=== PATIENT | male | born 1975 | race Caucasian/White ===

== ENCOUNTER → 2021-03-28 08:09 | Outpatient (CLI) | payer OTHER, SELFPAY ==
--- NOTE | ~2021-03-28 | US_ITS ---
US right upper quadrant INDICATION: Elevated liver enzymes. PROCEDURE: Realtime right upper abdominal ultrasound. COMPARISON: No prior studies for comparison. FINDINGS: The pancreas is normal without focal mass or pancreatic ductal dilation. Liver echotexture is increased, consistent with fatty infiltration. There is normal directional flow in the portal ve in. The gallbladder is normal without stones, gallbladder wall thickening or pericholecystic fluid. Comm on bile duct measures 5 mm. No sonographic Campa's sign. IMPRESSION: 1: Hepatic steatosis. Reviewed, dictated and finalized at location A. IMPRESSION: 1: Hepatic steatosis.
== END ==
DX: R74.8 Abnormal levels of other serum enzymes (principal); K76.0 Fatty (change of) liver, not elsewhere classified
CPT/HCPCS: 76705

== ENCOUNTER 2025-01-29 00:28 | Day surgery (SDC) | payer OTHER, SELFPAY ==
[2025-01-21 11:49] VITALS: BMI 39.2
--- OUTSIDE RECORDS SUMMARY | 2025-01-29 00:30 | XMS_ITS | Encounter Summary ---
Author Organization [facility] Address [address] [place] [id number] Care Team Providers Care Regasification Plant Operator Name Role Phone Cammy Young NP Primary Care Provider [phone] Encounter Details Date Type Department Care Team (Late st Contact Info) Description 05/16/2021 oneforty Message Enc [facility] Family Medicine - [place] [address] [facility] [address] [place] [phone] Cammy Young, FIDEL [address] [place] [address] RE: Question Social History Tobacco Use Types Packs/Day Years Used Date Smoking Tobacco: Former Cigarettes 1 10 Smokeless Tobacco: Current Chew Comments:Chewing tobacco x 5 years current Alcohol Use Standard Drinks/Week Comments Not Currently 0 (1 standard drink = 0.6 oz pur e alcohol) Few beers a week PHQ-2 Answer Date Recorded PHQ-2 Score - If the patient scores above 3, please move on to questions 3-9 0 02/27/2021 Sex and Gender Information Value Date Recorded Sex Assigned at Not on file Legal Sex Male 8:02 AM CDT Gender Identity Not on file Sexual Orientation Not on file COVID-19 Exposure Response Date Recorded In the last month, have you been in contact with someone who was confirmed or suspected to have Coronavirus / COVID-19? 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
--- OUTSIDE RECORDS SUMMARY | 2025-01-29 00:30 | XMS_ITS | Clinical Summary ---
Author Organization [facility] Address [facility] [place] [address] Care Team Providers Care Supplier Quality Engineering Manager Name Role Phone Cammy Young NP Primary Care Provider [phone] [phone] Allergies No known active allergies Medications Cholecalciferol 250 MCG (99434 UT) Cap Take 10,000 Units by mouth daily. Active lisinopril-hydro CHLOROthiazide (ZESTORETIC) 20-25 MG tabletIndication s:Hypertension, unspecified type Take 1 tablet by mouth daily. 90 tablet 1 12/28/2024 Active buPROPion XL (WELLBUTRIN XL) 300 MG 24 hr tabletIndication s:Anxiety and depression Take 1 tablet (300 mg total) by mouth daily. 90 tablet 1 12/28/2024 Active Active Problems Problem Noted Date Diagnosed Date Screening for colon cancer 09/21/2024 Assessment & Plan (09/21/2024 2:10 PM TOP TRIMMER): Due. Referral placed. Anxiety and depression 06/21/2024 Overview (09/21/2024): At last visit we increased his Wellbutrin XL to 300mg daily. Pt reports feeling amazing, it was like a night and day change. He reprots feeling better in 2- 3 weeks with higher does. Denies SI/HI. Assessment & Plan (09/21/2024 2:12 PM TOP TRIMMER): Pt is doing great. No changes needed at this time. Is needing a med refill today. BP has been well controlled with use. Assessment & Plan (06/21/2024 8:34 PM CDT): Shared decision making with tx options Pt would like to increase her bupropion from 150mg to 300mg vs something different he would like to try for depression. Encourage stress relieving activities, therapy (has been to therapy in the past) Hemochromatosis, unspecified hemochromatosis typ e 04/17/2022 Overview (06/21/2024): Following with hematology. Will have phelbetomy when needed. Assessment & Plan (06/21/2024 8:25 PM CDT): Continue to follow up with hematology Obesity (BMI 30-39.9) 04/17/2022 Assessment & Plan (06/21/2024 8:25 PM CDT): Encourage following a healthy well balance diet and staying active. Hypertension, unspecified type 04/11/2021 Overview (09/21/2024): Doing well with use of lsinipril - hydrochlorothiazide 20-25mg daily. Needing a med refill today. Assessment & Plan (09/21/2024 2:12 PM TOP TRIMMER): Needing refill today. Doing well. Goal for BP to stay below 140/90. Encourage lifestyle modifications to include healthy eating, decrease salt and caffeine in diet, routine exercise, and weight loss. Assessment & Plan (06/21/2024 8:25 PM CDT): Chronic condition, controlled. No changes needed at this time to his BP meds. Goal for BP to stay below 140/90. Encourage lifestyle modifications to include healthy eating, decrease salt and caffeine in diet, routine exercise, and weight loss, Elevated liver enzymes 04/11/2021 Vitamin D deficiency 04/11/2021 Hyperlipidemia, unspecified hyperlipidemia type 04/11/2021 Overview (06/21/2024): Hx of mixed hyperlipidemia. Due to be checked. Assessment & Plan (06/21/2024 8:26 PM CDT): Will check lipid panel fasting. Encourage following a low fat, low carb diet, encorperate whole foods such as fresh fruits and vegetables and whole grains into your diet, encourage 5 small meals per day. Avoid sugar-sweetened beverages, added sugars, processed meats, refined grains and oils or other processed foods. Encourage to get at least 150 minutes of moderate aerobic activity or 75 minutes of vigorous aerobic activity a week, or a combination of moderate and vigorous activity. Encounters Date Type Department Care Team Description 12/28/2024 Orders Only [address] [place] [address] Rizwana Suarez MA 12/25/2024 MyChart Message Enc [address] [place] [address] Cammy Young NP Meds 12/22/2024 Orders Only [address] [place] [address] Rizwana Suarez MA from Last 3 Months Immunizations Immunization Administration Dates Next Due Flucelvax 6 Months+ (Prefilled Syringe) 07/23/20 20 Influenza (Generic) 10/18/2021 Influenza Adult (Generic) 09/23/2022 PFIZER COVID-19 (ORIGINAL FO RMULATION, PURPLE CAP) mRNA, LNP-S, PF, 30 MCG/0.3 ML DOSE 10/18/2021,01/03/2021,12/13/2020 Tdap (Generic) 09/23/2022 Family History Medical History Relation Comments CABEZAS Maternal Aunt Diabetes Maternal Grandfather Diabetes Maternal Grandmother Diabetes Maternal Uncle Hypertension Mother Liver Disease Mother Relation Status Comments Maternal Aunt Maternal Grandfather Maternal Grandmother Maternal Uncle Mother Social History Tobacco Use Types Packs/Day Years Used Date Smoking Tobacco: Former Cigarettes 1 10 Passive Smoke Exposure: Past Smokeless Tobacco: Former Chew Quit: 2021 Tobacco Cessation:Counseling Given: No Comments:Chewing tobacco x 5 years current Alcohol Use Standard Drinks/Week Comments Yes 10 (1 standard drink = 0.6 oz pu re alcohol) Few beers a week PHQ-2 Answer Date Recorded Patient Health Questionnaire-2 Score 1 06/18/2024 Sex and Gender Information Value Date Recorded Sex Assigned at Not on file Legal Sex Male 8:02 AM CDT Gender Identity Not on file Sexual Orientation Not on file Last Filed Vital Signs Vital Sign Reading Time Taken Comments Blood Pressure 118/68 09/21/2024 1:53 PM TOP TRIMMER Pulse 106 09/21/2024 1:53 PM TOP TRIMMER Temperature 36.3 C (97.3 F) 09/21/2024 1:53 PM TOP TRIMMER Respiratory Rate 20 09/21/2024 1:53 PM TOP TRIMMER Oxygen Saturation 96% 09/21/2024 1:53 PM TOP TRIMMER Inhaled Oxygen Concentration - - Weight 122 kg (269 lb) 09/21/2024 1:53 PM TOP TRIMMER Height 175.3 cm (5' 9 ) 09/21/2024 1:53 PM TOP TRIMMER Body Mass Index 39.72 09/21/2024 1:53 PM TOP TRIMMER Plan of Treatment Health Maintenance Due Date Last Done Comments Colorectal Cancer Screening Colonoscopy (10 Years) 1973 Hepatitis B Vaccines (1 of 3 - 19+ 3-dose series) 1992 Zoster Vaccines (1 of 2) 2023 COVID-19 Vaccine (2023- season) 2024 10/18/2021, 01/03/2021, 12/13/2020 PHQ-2 (Physician Nenana) 10/14/2024 06/18/2024 Annual Physical 06/18/2025 06/18/2024, 07/0 03/2023, 04/17/2022, Additional history exists DTaP, Tdap and Td Vaccines (2 - Td or Tdap) 09/23/2032 09/23/2022 Hepatitis C Completed 03/04/2021 Meningococcal B Vaccine Aged Out No l onger eligible based on patient's age to complete this topic Meningococcal Vaccine Aged Out No purnima ramírez eligible based on patient's age to complete this topic Pneumococcal Vaccine: Pediatrics (0 to 5 Years) and At-Risk Patients (6 to 49 Years) Aged Out No longer eligible based on patient's age to complete this topic RSV Immunizations Under 20 Months Aged Out No longer eligible based on patient's age to complete this topic Procedures Procedure Name Priority Date/Time Associated Diagnosis Comments HEPATITIS C ANTIBODY W/RFX TO HCV RNA Routine 03/04/2021 7:10 AM CDT from Last 3 Months or Most Recently Relevant to Health Maintenance Results * HEPATITIS C ANTIBODY W/RFX TO HCV RNA (03/04/2021 7:10 AM CDT) HEPATITIS C AB NON-REACTI VE NON-REACT DANA [facility] SIGNAL TO CUTOFF 0.01 <[address] [facility] Comment: HCV antibody was non-reactive. There is no laboratory evidence of HCV infection. In most cases, no further action is required. However, if recent HCV exposure is suspected, a test for HCV RNA (test code 01352) is suggested. For additional information please refer to http://education.Nuvola/faq/ZYK91o9 (This link is being provided for informational/ educational purposes only.) 03/04/2021 7:10 AM CDT 03/04/2021 7:13 AM CDT Narrative [facility] - 03/07/2021 10:39 PM CDT FASTING:YES FASTING: YES Fer Hammond MD LABORATORY Final Result [facility] [id number] [place] [address] from Last 3 Months or Most Recently Relevant to Health [place] [address] [facility] Care Teams Supplier Quality Engineering Manager Relationship Specialty Start Date End Date Cammy Young NP [address] [place] [address] PCP - General NURSE PRACTITIONER 03/28/21
--- OUTSIDE RECORDS SUMMARY | 2025-01-29 00:30 | XMS_ITS | Encounter Summary ---
Author Organization [facility] Address [address] [place] [address] Care Team Providers Care Pipe Fitter Supervisor Name Role Phone Cammy Young NP Primary Care Provider [phone] Encounter Details Date Type Department Care Team (Late st Contact Info) Description 12/25/2024 Ontela Message Enc [facility] Family Medicine - [place] [address] [facility] [address] [place] [phone] Cammy Young NP [address] [place], [place] [id number] Meds Social History Tobacco Use Types Packs/Day Years Used Date Smoking Tobacco: Former Cigarettes 1 10 Passive Smoke Exposure: Past Smokeless Tobacco: Former Chew Quit: 2021 Comments:Chewing tobacco x 5 years current Alcohol [...] on file Sexual Orientation Not on file documented as of this encounter Plan of Treatment Not on file documented as of this encounter Visit Diagnoses Not on filedocumented in this encounter Additional Health Concerns Assessment Noted Time PHQ-9 Depression Total Score: 6 06/18/20 24 3:33 PM CDT documented as of this encounter Care Teams Pipe Fitter Supervisor Relationship Specialty Start Date End Date Cammy Young NP [address] [place] [address] PCP - General NURSE PRACTITIONER 03/28/21 documented as of this encounter
--- OUTSIDE RECORDS SUMMARY | 2025-01-29 00:30 | XMS_ITS | Clinical Summary ---
Author Organization [facility] Address [address] [place] [id number] Care Team Providers Care Real Estate Economist Name Role Phone Cammy Young MD Primary Care Provider [phone] Sidney Benton MD Unavailable Stephy Boyce NP Unavailable [phone] Allergies No known active allergies Medications lisinopriL (PRINIVIL,ZESTR [place]) 10 mg tablet Take 1 tablet (10 mg total) by mouth daily 04/11/2021 Active cholecalciferol (VITAMIN D-3) 36441 unit capsule Take 1 capsule (10,000 Units total) by mouth daily Active buPROPion XL (WELLBUTRIN XL) 150 mg 24 hr tablet Take 1 tablet (150 mg total) by mouth daily 12/03/2023 Active Active Problems Problem Noted Date Diagnosed Date Elevated ferritin 05/16/2021 Elevated liver enzymes 04/27/2021 Immunizations Immunization Administration Dates Next Due Influenza, Quadrivalent, Esther l Culture-based MDCK, Preservative Free, Antibiotic Free, Intramuscular 07/23/2020 Pfizer SARS-CoV-2 Monovalent Vaccination (12+ Yrs) PURPLE 01/03/2021,12/13/2020 Surgical History Surgery Date Site/Laterality Comments ADENOIDECTOMY as a child Medical History Medical History Date Comments Hypertension Family History Medical History Relation Name Comments Dementia Maternal Grandmother Dementia Paternal Grandmother Relation Name Status Comments Maternal Grandmother Paternal Grandmother Social History Tobacco Use Types Packs/Day Years Used Date Smoking Tobacco: Former Cigarettes Q uit: 1994 Smokeless Tobacco: Former Chew AUDIT-C Answer Date Recorded Frequency of Alcohol Consumption Not on file 04/27/2024 Q2: How many drinks containi ng alcohol do you have on a typical day when you are drinking? 1 or 2 04/27/2024 Q3: How often do you have si x or more drinks on one occasion? Less than monthly 04/27/2024 Personal Safety Answer Date Recorded Getting School Help Needed Not on file 09/26 Sex and Gender Information Value Date Recorded Sex Assigned at Not on file Legal Sex Male 11:54 AM CDT Gender Identity Not on file Sexual Orientation Not on file Obstetrics History Last Filed Vital Signs Vital Sign Reading Time Taken Comments Blood Pressure 127/87 04/27/2024 1:08 PM CDT Pulse 108 04/27/2024 1:08 PM CDT automotive paint technician notified Temperature 36.9 C (98.4 F) 04/27/2024 1:08 PM CDT Respiratory Rate 17 04/27/2024 1:08 PM CDT Oxygen Saturation 98% 04/27/2024 1:0 8 PM CDT Inhaled Oxygen Concentration - - Weight 120.4 kg (265 lb 6.4 oz) 04/27/2024 1:08 PM CDT Height 174 cm (5' 8.5 ) 11/11/2023 3:00 PM BAG MACHINE HELPER Body Mass Index 39.77 11/11/2023 3:00 PM BAG MACHINE HELPER Plan of Treatment Health Maintenance Due Date Last Done Comments Colon Cancer Screening-Colonoscopy 1973 Depression Screening 1973 Hepatitis C Screening 1973 Prostate Cancer Screening-PSA 1973 Hepatitis B Screening 1991 Regular Well Visit/Exam 18-64 1991 Zoster Vaccine (1 of 2) 2023 Covid-19 Vaccine ( - 2023-2 5 season) 2024 10/18/2021, 01/03/2021, 12/13/2020 Influenza Vaccine (#1) 2024 , 10/18/2021, 07/23/2020 DTaP/Tdap/Td Vaccine (2 - Td or Tdap) 09/23/2032 09/23/2022 Pneumococcal vaccine <65 Aged Out No longer eligible based on patient's age to complete this topic Insurance [facility] CHOICE PLUS [facility] CHOICE PLUS Care Teams Real Estate Economist Relationship Specialty Start Date End Date Cammy Young MD PCP - General Nurse Practitioner 04/13/21 Sidney Benton MD Consulting Physician Gastroenterology 05/22/21 Stephy Boyce NP Nurse Practitioner Medical Oncology 03/13/23
--- OUTSIDE RECORDS SUMMARY | 2025-01-29 00:30 | XMS_ITS | Referral Summary ---
Author Organization [facility] Address [address] [place] [id number] Care Team Providers Care Avionics Safety Inspector Name Role Phone Cammy Young MD Primary Care Provider [phone] Sidney Benton MD Unavailable [phone] Stephy Boyce NP Unavailable [phone] Allergies No known active allergies Medications lisinopriL (PRINIVIL,ZESTR [place]) 10 mg tablet Take 1 tablet (10 mg total) by mouth daily 04/11/2021 Active cholecalciferol (VITAMIN D-3) 76990 unit capsule Take 1 capsule (10,000 Units [...] SARS-CoV-2 Monovalent Vaccination (12+ Yrs) PURPLE 01/03/2021,12/13/2020 Social History Tobacco Use Types Packs/Day Years [...] CDT Pulse 108 04/27/2024 1:08 PM CDT tape librarian notified Temperature 36.9 C (98.4 F) 04/27/2024 1:08 PM CDT Respiratory Rate 17 04/27/2024 1:08 PM CDT Oxygen Saturation 98% 04/27/2024 1:0 8 PM CDT Inhaled Oxygen Concentration - - Weight 120.4 kg (265 lb 6.4 oz) 04/27/2024 1:08 PM CDT Height 174 cm (5' 8.5 ) 11/11/2023 3:00 PM BURNING SUPERVISOR Body Mass Index 39.77 11/11/2023 3:00 PM BURNING SUPERVISOR Plan of Treatment Not on file Insurance [facility] CHO[facility] PLUS [facility] HMO/PPO Address: [address] [address] [place] [address] [facility] CHO[facility] PLUS [facility] HMO/PPO Address: [facility] [id number] [place] [id number] Care Teams Avionics Safety Inspector Relationship Specialty Start Date End Date Cammy Young MD PCP - General Nurse Practitioner 04/13/21 Sidney Benton MD Consulting Physician Gastroenterology 05/22/21 Stephy Boyce NP Nurse Practitioner Medical Oncology 03/13/23
[2025-01-29 10:03] VITALS: BP 150/97; PULSE 93; RESP 16; TEMP 36.8; O2SAT 97
[2025-01-29] MEDS: LACTATED RINGERS 1,000 ML 150 ML IV CONT (10:15)
--- NOTE | 2025-01-29 10:35 | WPDANESEPPF ---
Anes - Initial Pre Proc Eval Procedure: Operation Date: 01/29/25 11:00 Proposed Procedures p Screening Colonoscopy - Vincent Fatima MD Date/Time: 01/29/25 10:35 Surgeon: Vincent Fatima MD Pre Op Diagnosis: screening colon Patient Data Age: 49 Gender: M Height: 1.75 m Weight: 118.3 kg Last Vital Signs Temp 36.8 C 01/29/25 10:03 Pulse 93 01/29/25 10:03 Resp 16 01/29/25 10:03 BP 150/97 H 01/29/25 10:03 Pulse Ox 97 01/29/25 10:03 O2 Del Method Room Air 01/29/25 10:03 Allergies Allergy/AdvReac Type Severity Reaction Status Date / Time No Known Allergies Allergy Mild Verified 01/29/25 10:01 Home Medications ?Medication ?Instructions ?Recorded ?Confirmed ?Type bupropion HCl 300 mg 24 hr tablet, 300 mg PO DAILY 01/21/25 01/29/25 History extended release cholecalciferol (vitamin D3) 125 10,000 unit PO DAILY 01/21/25 01/29/25 History mcg (5,000 unit) tablet lisinopril 20 1 tablet PO DAILY 01/21/25 01/29/25 History mg-hydrochlorothiazide 25 mg tablet Patient hx anesthesia problems: none Family hx anesthesia problems: none Results Review: All pre-operative results and documents have been reviewed as part of the pre-operative evaluation. [facility] Past Medical History Medical History (Updated 01/29/25 @ 10:35 by Jamel Barahona MD) Snoring HTN (hypertension) Obesity Social History Social History Smoking packs per day: 0.5 Smoking cigarettes per day: 10.0 Years smoked: 12 Smoking pack-years: 6.00 Smoking status: Former smoker Tobacco type: cigarettes Alcohol intake: current Drinks per week: 5 Substance use: never Substance use type: does not use Living arrangements: with family Spiritual care concerns: No Anes - Eval Final PreProcedure Day of Procedure 01/29/25 10:35 Patient weight: obese Heart: regular rate and rhythm Lungs: clear to auscultation Airway: Mallampati scale class II Neurological: alert and oriented Last oral intake: >/= 8 hours ASA classification: III Emergent: no Anesthetic plan: proceed Anesthesia type and monitoring: general GIVS and standard monitoring Results Review: All pre-operative results and documents have been reviewed as part of the pre-operative evaluation. Informed Consent: The patient's anesthetic plan and its attendant risks and benefits were discussed with the patient/family/POA. Questions were solicited and answers provided to the satisfaction of the patient/family/POA.
--- NOTE | 2025-01-29 10:38 | PM.IMHP ---
H&P: HPI History of Present Illness Date/Time: 01/29/25 10:38 Chief Complaint: Screening colonoscopy Narrative: This is the patient's first colonoscopy. There are no GI symptoms and there is no family history of colorectal cancer. Review of Systems Review of Systems: All systems reviewed & are unremarkable except as noted in HPI and below [facility] Past Medical History Medical History (Updated 01/29/25 @ 10:38 by Vincent Fatima MD) Snoring HTN (hypertension) Obesity Social History Social History Smoking packs per day: 0.5 Smoking cigarettes per day: 10.0 Years smoked: 12 Smoking pack-years: 6.00 Smoking status: Former smoker Tobacco type: cigarettes Alcohol intake: current Drinks per week: 5 Substance use: never Substance use type: does not use Living arrangements: with family Spiritual care concerns: No Meds Home Medications and Allergies Home Medications ?Medication ?Instructions ?Recorded ?Confirmed ?Type bupropion HCl 300 mg 24 hr tablet, 300 mg PO DAILY 01/21/25 01/29/25 History extended release cholecalciferol (vitamin D3) 125 10,000 unit PO DAILY 01/21/25 01/29/25 History mcg (5,000 unit) tablet lisinopril 20 1 tablet PO DAILY 01/21/25 01/29/25 History mg-hydrochlorothiazide 25 mg tablet Allergies Allergy/AdvReac Type Severity Reaction Status Date / Time No Known Allergies Allergy Mild Verified 01/29/25 10:01 Vital Signs Vital Signs - 24 hr 01/29/25 10:03 Temperature 98.3 F Pulse Rate 93 Respiratory Rate 16 Blood Pressure 150/97 H Pulse Oximetry 97 Oxygen Delivery Room Air Exam Const: General: cooperative and healthy appearing Resp: Effort & Inspection: normal respiratory effort and able to speak in complete sentences Auscultation: clear to auscultation bilaterally Cardio: Rate: regular rate Rhythm: regular rhythm GI: Inspection: normal to inspection GI Palp: No No hepatosplenomegaly present Auscultation: normal bowel sounds Rectal Exam: deferred Skin: General skin exam: normal color Psych: Appearance: grossly normal Mental Status: mental status grossly normal Assessment and Plan Assessment and plan (1) Encounter for screening colonoscopy: Code(s): Z12.11 - Encounter for screening for malignant neoplasm of colon Status: Acute Assessment and Plan: The patient is deemed a good candidate for the procedure. Consent signed. Will proceed.
[2025-01-29 10:57] VITALS: BP 131/86; PULSE 89; RESP 25; O2SAT 97
[2025-01-29 11:07] VITALS: BP 126/81; PULSE 88; RESP 26; O2SAT 97
[2025-01-29 11:17] VITALS: BP 124/90; PULSE 79; RESP 22; O2SAT 97
== END 2025-01-29 11:25 | disposition home or self-care (01) ==
PROVIDERS: PCP Nurse Practitioner; Referring Provider Nurse Practitioner; Visit Provider Internal Medicine Gastroenterology
PROC: 0DJD8ZZ Inspection of Lower Intestinal Tract, Via Natural or Artificial Opening Endoscopic (ICD-10-PCS; CPT 45378; principal; 2025-01-29 11:00)
DX: Z12.11 Encounter for screening for malignant neoplasm of colon (principal); D12.3 Benign neoplasm of transverse colon; K63.5 Polyp of colon; I10 Essential (primary) hypertension; E66.9 Obesity, unspecified; Z68.38 Body mass index [BMI] 38.0-38.9, adult; Z87.891 Personal history of nicotine dependence
CPT/HCPCS: 45385; 88305; J2003; J2704; J7120